=== PATIENT | female | born 1945 | race Caucasian/White ===

== ENCOUNTER 2023-11-11 05:31 | Day surgery (SDC) | payer MEDICARE, OTHER ==
[2023-11-05 12:30] LABS: BASOPHILS % (AUTO) 0.5 % (0-1); EOSINOPHILS % (AUTO) 0.3 % (0-6); LYMPHOCYTES # (AUTO) 1.4 X10'3 (1.1-4.8); LYMPHOCYTES % (AUTO) 15.8 % (21-51); MEAN CORPUSCULAR HEMOGLOBIN 30.3 PG (27.0-31.0); MEAN CORPUSCULAR HGB CONC 33.3 g/dL (33.0-36.5); MEAN CORPUSCULAR VOLUME 90.9 FL (78-98); MONOCYTES # (AUTO) 0.4 X10'3 (0-0.9); MONOCYTES % (AUTO) 4.4 % (2-12); NEUTROPHILS # (AUTO) 6.8 X10'3 (1.8-7.7); PRE OP HEMATOCRIT 41.2 % (35.0-45.0); PRE OP HEMOGLOBIN 13.7 g/dL (12.0-16.0); PRE OP PLATELET COUNT 328 X10'3 (140-440); PRE OP WHITE BLOOD COUNT 8.6 10'3 (4.8-10.8); RED BLOOD COUNT 4.54 X10'6 (4.20-5.60); RED CELL DISTRIBUTION WIDTH 14.8 % (11.5-14.5)
[2023-11-05 12:43] LABS: HEMOGLOBIN A1C 6.4 % (4.5-6.2)
[2023-11-05 12:44] LABS: PRE OP PROTIME 10.9 SECONDS (9.0-12.0)
[2023-11-05 12:54] LABS: ALBUMIN/GLOBULIN RATIO 1.3 (1.1-1.5); ALKALINE PHOSPHATASE 85 IU/L (46-116); BLOOD UREA NITROGEN 17 MG/DL (7-18); CALCIUM 9.3 MG/DL (8.5-10.1); CHLORIDE 103 MMOL/L (99-107); CREATININE 0.68 MG/DL (0.40-0.90); PRE OP ALT 29 U/L (30-65); PRE OP ANION GAP 6 (8-16); PRE OP AST 19 U/L (10-37); PRE OP BILIRUB, TOTAL 0.6 MG/DL (0.0-1.0); PRE OP POTASSIUM 4.3 MMOL/L (3.4-5.1); PRE OP SODIUM 140 MMOL/L (135-145); THYROID STIMULATING HORMONE 2.18 ulU/ml (0.34-4.50); TOTAL CARBON DIOXIDE 30.9 MMOL/L (24-32); TOTAL PROTEIN 7.1 G/DL (6.4-8.2); eGFR 84 ML/MIN
[2023-11-05 12:59] LABS: PRE OP GLUCOSE 217 MG/DL (70-104)
[~2023-11-11] VITALS: Ht 172.7 cm; Wt 65.8 kg
[2023-11-11] VITALS (18 sets, daily range): BP systolic 107–152; BP diastolic 37–89; PULSE 61–79; RESP 12–24; TEMP 97–98.4; O2SAT 90–100
[~2023-11-11 05:31] MED LIST: AMLO10TA13 PO; CYCL1DRO EACHEYE; INSU100C10 SQ; INSU100I29 SQ; LEVO25TA7 PO; LOSA100T58 PO; PARO40TA4 PO
[2023-11-11] MEDS: tranexamic acid inj. 1,000 MG in normal saline IV soln 100ML IV ONE (05:40)
[2023-11-11] MEDS: cefazolin 2gm/D5W 100mL 100 ML IV ONE (05:40)
[2023-11-11] MEDS: famotidine 20mg tablet PO ONE (06:20)
[2023-11-11] MEDS ORDERED: ondansetron/PF 4mg/2ml inj IV PRN ×2 (06:40→08:35)
[2023-11-11] MEDS ORDERED: bisacodyl 10mg suppository rectal RC PRN (06:40)
[2023-11-11] MEDS ORDERED: diphenhydrAMINE 25mg capsule PO PRN (06:40)
[2023-11-11] MEDS ORDERED: magnesium hydroxide 30ml (MOM) UD suspension PO PRN (06:40)
[2023-11-11] MEDS ORDERED: naloxone 0.4 mg/ml inj IV PRN (06:40)
[2023-11-11] MEDS ORDERED: acetaminophen 325mg tablet PO PRN (06:40)
[2023-11-11] MEDS ORDERED: midazolam 1 mg/ML 2ml injection ONE (06:59)
[2023-11-11] MEDS ORDERED: propofol inj 20 ML IV ONE (06:59)
[2023-11-11] MEDS ORDERED: fentaNYL/PF 50MCG/1 ML 2ML syringe ONE (06:59)
[2023-11-11] MEDS ORDERED: sevoflurane 250ml liquid IH ONE (07:01)
[2023-11-11] MEDS ORDERED: ROPIVAcaine 0.5% (5mg/ml) 30ml vial ONE (07:02)
[2023-11-11] MEDS: vancomycin 1,000mg inj ONE (08:11)
[2023-11-11] MEDS ORDERED: meperidine/PF 25mg/ml syringe IV PRN ×3 (08:35)
[2023-11-11] MEDS ORDERED: proCHLORperazine 10 MG/2 ml inj IV PRN (08:35)
[2023-11-11] MEDS ORDERED: morphine 4 MG/ML inj SYRINge IV PRN (08:35)
[2023-11-11] MEDS: ringers solution, lacted 1,000 ML IV SCH ×2 (08:35→12:01)
[2023-11-11] MEDS ORDERED: morphine 2 MG/ML inj. syringe IV PRN (08:35)
[2023-11-11] MEDS ORDERED: vancomycin 1,000mg inj ONE (09:03)
[2023-11-11] MEDS ORDERED: dexamethasone sod phosphate 4mg/ml inj. ONE (09:23)
[2023-11-11] MEDS ORDERED: ondansetron/PF 4mg/2ml inj ONE (09:23)
[2023-11-11] MEDS: methylene blue (5mg/ml) 50mg/10ml ampul IV ONE ×2 (09:46→12:03)
[2023-11-11] MEDS: gelatin sponge, absorbable (Gelfoam 100) sponge TP ONE (09:47)
[2023-11-11] MEDS: Thrombin (Bovine) 5,000 unit vial TP ONE (12:02)
[2023-11-11] MEDS: cloNIDine hcl/PF 100mcg/ml inj ONE (12:02)
[2023-11-11] MEDS: potassium Cl 20mEq in NS 1,000 ML IV SCH (12:08)
[2023-11-11] MEDS ORDERED: dextrose 50%-water 50ml dispensing syringe IV PRN ×2 (14:00)
[2023-11-11] MEDS ORDERED: glucagon, human recombinant 1mg kit SUBCUT PRN (14:00)
[2023-11-11] MEDS ORDERED: DEXTROSE 15 GM of carb/4 tabs (each vial/BOTTLE has 4 tablets) PO PRN ×2 (14:00)
[2023-11-11] MEDS: INSULIN LISPRO 100 UNIT/ML INSULN.PEN MULTI-DOSE SQ SCH (16:10)
[2023-11-11] MEDS: cefazolin 2gm/D5W 100mL 100 ML IV SCH (16:42)
[2023-11-11] MEDS: HYDROcodone/acetaminophen 5mg/325mg tablet PO PRN (19:14)
[2023-11-11] MEDS: cycloSPORINE 0.05% ophthalmic emulsion EACHEYE SCH (21:18)
[2023-11-12] MEDS: morphine 2 MG/ML inj. syringe IV PRN (00:31)
[2023-11-12 06:00] VITALS: BP 132/42; PULSE 68; RESP 16; TEMP 97.6; O2SAT 98
[2023-11-12] MEDS ORDERED: magnesium 2GM in 50ml NS 50 ML IV PRN (07:35)
[2023-11-12] MEDS ORDERED: acetaminophen 325mg tablet PO PRN (07:35)
[2023-11-12] MEDS ORDERED: ondansetron/PF 4mg/2ml inj IV PRN (07:35)
[2023-11-12] MEDS ORDERED: magnesium 4gm in 100ml NS 100 ML IV PRN (07:35)
[2023-11-12] MEDS ORDERED: potassium Cl 40MEQ/1/2NS 520ml 520 ML IV PRN (07:35)
[2023-11-12] MEDS ORDERED: mag hydrox/Alum hydrox/simeth 30ml oral suspension PO PRN (07:35)
[2023-11-12] MEDS ORDERED: magnesium Cl slow-release 64mg tablet PO PRN (07:35)
[2023-11-12] MEDS ORDERED: magnesium hydroxide 30ml (MOM) UD suspension PO PRN (07:35)
[2023-11-12] MEDS ORDERED: potassium Cl 20 mEq SR tablet PO PRN ×2 (07:35)
[2023-11-12 07:40] LABS: BASOPHILS # (AUTO) 0.1 X10'3 (0-0.2); BASOPHILS % (AUTO) 0.6 % (0-1); EOSINOPHILS % (AUTO) 0.1 % (0-6); HEMOGLOBIN 11.2 g/dl (12.0-16.0); LYMPHOCYTES # (AUTO) 1.7 X10'3 (1.1-4.8); LYMPHOCYTES % (AUTO) 21.9 % (21-51); MEAN CORPUSCULAR HEMOGLOBIN 33.2 PG (27.0-31.0); MEAN CORPUSCULAR HGB CONC 33.8 g/dL (33.0-36.5); MEAN CORPUSCULAR VOLUME 98.3 FL (78-98); MEAN PLATELET VOLUME 9.1 FL (7.4-10.4); MONOCYTES # (AUTO) 0.8 X10'3 (0-0.9); MONOCYTES % (AUTO) 10.4 % (2-12); NEUTROPHILS # (AUTO) 5.3 X10'3 (1.8-7.7); PLATELET COUNT 207 X10'3 (140-440); RED BLOOD COUNT 3.36 X10'6 (4.20-5.60); RED CELL DISTRIBUTION WIDTH 14.9 % (11.5-14.5); WHITE BLOOD COUNT 7.9 X10'3 (4.5-11.0)
[2023-11-12] MEDS: insulin glargine (Lantus) pen - multi-dose SQ SCH (07:43)
[2023-11-12] MEDS: aspirin 325mg tablet PO SCH (07:56)
[2023-11-12] MEDS: losartan 50mg tablet PO SCH (07:57)
[2023-11-12] MEDS: amLODIPine 5mg tablet PO SCH (07:57)
[2023-11-12] MEDS: levoTHYROXINE 25mcg tablet PO SCH (07:58)
[2023-11-12] MEDS: PARoxetine 20mg tablet PO SCH (07:58)
[2023-11-12] MEDS: K and/or MAG REPLACEMENT MC SCH (08:00)
[2023-11-12] MEDS: docusate sod 100mg capsule PO SCH (08:00)
[2023-11-12] MEDS: HYDROcodone/acetaminophen 5mg/325mg tablet PO PRN (08:07)
[2023-11-12 08:11] LABS: ALANINE AMINOTRANSFERASE 24 U/L (12-78); ALBUMIN/GLOBULIN RATIO 1.1 (1.1-1.5); ALKALINE PHOSPHATASE 68 IU/L (46-116); ANION GAP 8 (8-16); ASPARTATE AMINO TRANSFERASE 37 U/L (10-37); BILIRUBIN,TOTAL 0.6 MG/DL (0.1-1.0); BLOOD UREA NITROGEN 18 MG/DL (7-18); BUN/CREATININE RATIO 25.7 (10.0-20.0); CALCIUM 8.4 MG/DL (8.5-10.1); CHLORIDE 107 MMOL/L (99-107); CHOL/HDL RATIO 1.7 (0.00-4.99); CHOLESTEROL 123 MG/DL (0-200); GLUCOSE 218 MG/DL (70-104); HDL CHOLESTEROL 72 MG/DL (35-60); LDL CHOLESTEROL 39 MG/DL (50-100); POTASSIUM 4.7 MMOL/L (3.5-5.1); SODIUM 140 MMOL/L (135-145); TOTAL CARBON DIOXIDE 24.8 MMOL/L (24-32); TOTAL PROTEIN 5.7 G/DL (6.4-8.2); TRIGLYCERIDES 78 MG/DL (20-135); eCRCL 69 ML/MIN; eGFR 81 ML/MIN
[2023-11-12 10:00] VITALS: BP 135/40; PULSE 92; RESP 15; TEMP 98.1; O2SAT 97
[2023-11-12 10:42] VITALS: O2SAT 97
[2023-11-12] MEDS ORDERED: ASPI-1 PO (12:15)
[2023-11-12] MEDS ORDERED: insulin glargine (Lantus) pen - multi-dose SQ SCH (14:05)
== END 2023-11-12 14:45 | disposition home or self-care (01) ==
LOC: PAS 05:31 → ORTHO 4S 06:48 → PAS 11-12 14:45
PROVIDERS: ATTEND Specialist
DX: M19.011 Primary osteoarthritis, right shoulder (principal); G89.18 Other acute postprocedural pain; I10 Essential (primary) hypertension; E10.9 Type 1 diabetes mellitus without complications; E03.9 Hypothyroidism, unspecified; F41.9 Anxiety disorder, unspecified; G43.909 Migraine, unspecified, not intractable, without status migrainosus; M19.90 Unspecified osteoarthritis, unspecified site; Z79.890 Hormone replacement therapy; Z79.899 Other long term (current) drug therapy; Z90.49 Acquired absence of other specified parts of digestive tract; Z90.710 Acquired absence of both cervix and uterus; Z90.13 Acquired absence of bilateral breasts and nipples; Z98.890 Other specified postprocedural states; Z91.013 Allergy to seafood; Z88.8 Allergy status to other drugs, medicaments and biological substances
CPT/HCPCS: 23430; 23472; 36415; 64415; 73030; 80053; 80061; 82948; 83036; 83735; 84443; 85025; 85610; 85730; 86885; 86900; 86901; 87081; 97110; 97161; 97530; A4565; A4615; A4618; A6402; A6455; A7000; C1713; C1776; J0690; J0735; J1100; J1815; J2250; J2270; J2405; J2704; J2795; J3010; J3370; J3480; J3490; J7030; J7120; Q9968; Z7506; Z7508; Z7512; Z7610; 76000; A6449; G0378